=== PATIENT | male | born 1950 | race Two or more races ===

== ENCOUNTER 2020-03-04 09:19 | Day surgery (SDC) | payer MEDICARE ==
[~2020-03-04] VITALS: Ht 172.7 cm; Wt 70.0 kg
[2020-03-04] MEDS ORDERED: CARV6.2512 PO (10:10)
[2020-03-04] MEDS ORDERED: SPIR25TA5 PO (10:10)
[2020-03-04] MEDS ORDERED: VALS1TAB30 PO (10:10)
[2020-03-04] MEDS ORDERED: CLON0.1T22 PO (10:10)
[2020-03-04] MEDS ORDERED: OMEG1CAP23 PO (10:10)
[2020-03-04 10:41] LABS: BASOPHILS % (AUTO) 1 % (0-1); EOSINOPHILS % (AUTO) 1 % (1-7); LYMPHOCYTES % (AUTO) 20 % (22-44); MEAN CORPUSCULAR HEMOGLOBIN 32.8 pg (27.5-34.5); MEAN CORPUSCULAR HGB CONC 34.6 g/dL (33.2-36.2); MEAN PLATELET VOLUME 8.9 fL (7.4-10.4); MONOCYTES % (AUTO) 8 % (2-9); NEUTROPHILS % (AUTO) 71 % (42-75); PLATELET COUNT 128 x10^3/uL (130-400); RED BLOOD COUNT 5.43 x10^6/uL (4.38-5.82)
[2020-03-04 10:43] LABS: MD NO
[2020-03-04 10:50] LABS: ANION GAP 5 mmol/L (5-15); CALCIUM 8.8 mg/dL (8.5-10.1); CHLORIDE 104 mmol/L (98-107); CREATININE 0.78 mg/dL (0.7-1.3)
[2020-03-04] MEDS ORDERED: MIDAZOLAM 1 MG/ML, 5ML ONE (12:37)
[2020-03-04] MEDS ORDERED: FENTANYL PF 100 MCG/2ML ONE (12:37)
[2020-03-04] MEDS ORDERED: HEPARIN 1,000 UNITS/ML, 10ML ONE (12:38)
[2020-03-04] MEDS ORDERED: VERAPAMIL 2.5 MG/ML, 2ML ONE (12:38)
[2020-03-04] MEDS ORDERED: TICAGRELOR 90 MG TABLET ONE (12:38)
[2020-03-04] MEDS ORDERED: BIVALIRUDIN 250 MG ONE (12:38)
[2020-03-04] MEDS ORDERED: LIDOCAINE 2%, 20ML ONE (12:38)
[2020-03-04] MEDS ORDERED: NITROGLYCERIN 5 MG/ML, 10ML ONE (12:38)
[2020-03-04] MEDS ORDERED: SODIUM CHLORIDE 0.9% 1,000 ML IV SCH (14:00)
== END 2020-03-04 16:09 | disposition home or self-care (01) ==
LOC: CACL 09:19
PROVIDERS: ATTEND Internal Medicine Cardiovascular Disease
DX: R94.39 Abnormal result of other cardiovascular function study (principal); I42.8 Other cardiomyopathies; I77.1 Stricture of artery; I11.0 Hypertensive heart disease with heart failure; I50.42 Chronic combined systolic (congestive) and diastolic (congestive) heart failure; I49.3 Ventricular premature depolarization; Z79.899 Other long term (current) drug therapy; Z88.0 Allergy status to penicillin; Z88.8 Allergy status to other drugs, medicaments and biological substances; Z95.0 Presence of cardiac pacemaker
CPT/HCPCS: 36415; 80048; 85025; 93458; 99156; C1769; C1894; J1644; J2250; J3010; Q9967; J0583